=== PATIENT | male | born 1975 | race Hispanic/Latino ===

== ENCOUNTER 2018-08-02 17:59 | Emergency (ER) | payer OTHER ==
[2018-08-02] MEDS ORDERED: Lidocaine 1% (PF) 30 ML VIAL ONE (18:23)
[2018-08-02] MEDS ORDERED: Bacitracin Zinc 1 Packet ONE (20:03)
== END 2018-08-02 20:10 | disposition home or self-care (01) ==
LOC: NAV ERS 17:59
DX: S61.211A Laceration without foreign body of left index finger without damage to nail, initial encounter (principal); E78.00 Pure hypercholesterolemia, unspecified; F17.210 Nicotine dependence, cigarettes, uncomplicated; W26.8XXA Contact with other sharp object(s), not elsewhere classified, initial encounter
CPT/HCPCS: 12001; J2001